=== PATIENT | female | born 1995 | race Caucasian/White ===

== ENCOUNTER 2020-05-26 14:00 | Outpatient (RCR) | payer OTHER | END 2020-05-29 | disposition home or self-care (01) | LOC: M PT 14:00 | PROVIDERS: ATTEND Otolaryngology | DX: M26.629 Arthralgia of temporomandibular joint, unspecified side (principal) ==

== ENCOUNTER 2020-06-10 13:45 | Outpatient (RCR) | payer OTHER | END 2020-06-29 | LOC: M PT 13:45 | PROVIDERS: ATTEND Otolaryngology | DX: M26.629 Arthralgia of temporomandibular joint, unspecified side (principal) ==